=== PATIENT | female | born 1975 | race Caucasian/White ===

== ENCOUNTER 2018-04-22 06:33 | Observation (INO) | payer BC ==
[2018-04-20 16:12] LABS: BASOPHILS % 0.5 % (0.0-1.0); EOSINOPHILS # (AUTO) 0.1 (0.0-0.4); EOSINOPHILS % 1.2 % (0.0-6.0); HEMATOCRIT 45.9 % (34.2-44.1); HEMOGLOBIN 15.4 g/dL (12.0-16.0); LYMPHOCYTES # (AUTO) 2.5 (1.0-3.2); LYMPHOCYTES % 31.7 % (18.0-39.1); MEAN CORPUSCULAR HEMOGLOBIN 30.6 pg (28-32); MEAN CORPUSCULAR HGB CONC 33.6 g/dL (31-35); MEAN CORPUSCULAR VOLUME 91.3 fL (81-99); MONOCYTES # (AUTO) 0.6 (0.2-0.8); MONOCYTES % 6.9 % (4.4-11.3); NEUTROPHILS # (AUTO) 4.8 (2.1-6.9); NEUTROPHILS % 59.3 % (38.7-80.0); PLATELET COUNT 232 x10e3/uL (140-360); RED BLOOD COUNT 5.03 x10e6/uL (3.6-5.1); RED CELL DISTRIBUTION WIDTH 12.3 % (11.7-14.4)
[2018-04-20 16:26] LABS: INR 0.81
[2018-04-20 16:27] LABS: PARTIAL THROMBOPLASTIN TIME 27.8 seconds (23.8-35.5)
[2018-04-20 16:35] LABS: ANION GAP 14.3 mmol/L (8-16); BLOOD UREA NITROGEN 12 mg/dL (7-26); BUN/CREATININE RATIO 13 (6-25); CALCIUM 9.6 mg/dL (8.4-10.2); CARBON DIOXIDE 24 mmol/L (22-29); CHLORIDE 105 mmol/L (98-107); CREATININE, SERUM 0.92 mg/dL (0.57-1.11); EST GLOMERULAR FILTRATION RATE > 60 ML/MIN (60-); GLUCOSE 95 mg/dL (74-118); POTASSIUM 4.3 mmol/L (3.5-5.1); SODIUM 139 mmol/L (136-145)
--- NOTE | 2018-04-20 18:01 | Diagnostic Imaging Report ---
EXAMINATION: CHEST 2 VIEWS COMPARISON: None FINDINGS: TUBES and LINES: None. LUNGS: Lungs are well inflated. Lungs are clear. There is no evidence of pneumonia or pulmonary edema. PLEURA: No pleural effusion or pneumothorax. HEART AND MEDIASTINUM: The cardiomediastinal silhouette is unremarkable. BONES AND SOFT TISSUES: No acute osseous lesion. Soft tissues are unremarkable. UPPER ABDOMEN: No free air under the diaphragm. IMPRESSION: No acute radiographic abnormality. Signed by: Dr. Valente Elena MD on 04/20/2018 5:58 PM
[~2018-04-22] VITALS: Ht 160 cm; Wt 74.4 kg
[~2018-04-22 06:33] MED LIST: CYCLOBENZAPRINE5 MG PO; IBUPROFEN400 MG PO; TOPAMAX25 MG PO
--- OUTSIDE RECORDS SUMMARY | 2018-04-22 06:36 | XMS REPORT ---
Author [facility] Address Unknown Phone Unavailable Care Team Providers Care Traffic Agent Name Role Phone CEDRIC CAGLE Unavailable Unavailable Problems This patient has no known problems. Allergies, Adverse Reactions, Alerts This patient has no known allergies or adverse reactions. Medications This patient has no known medications. Results Test Description Test Time Test Comments Text Results Atomic Results Result Comments CHEST 2 VIEWS 2018-04-20 17:56:00 [place] [address] Patient Name: NICO PARISI MR #: [id number] : 1975 Age/Sex: 43/F Req #: [id number] [facility] Physician: Ordered by: CEDRIC CAGLE MD Report #: [id number] Location: OR Room/Bed: Procedure: [id number] DX/CHEST 2 VIEWS Exam Date: 04/20/18 Exam Time: 1615 REPORT STATUS: Signed EXAMINATION: CHEST 2 VIEWS COMPARISON: None FINDINGS: TUBES and LINES: None. LUNGS: Lungs are well inflated. Lungs are clear. There is no evidence of pneumonia or pulmonary edema. PLEURA: No pleural effusion or pneumothorax. HEART AND MEDIASTINUM: The cardiomediastinal silhouette is unremarkable. BONES AND SOFT TISSUES: No acute osseous lesion. Soft tissues are unremarkable. UPPER ABDOMEN: No free air under the diaphragm. IMPRESSION: No acute radiographic abnormality. Signed by: Dr. Destiny Conti MD on 04/20/2018 5:58 PM Dictated By: DESTINY CONTI MD 55 Transcribed By: HEIDI on 04/20/181757 COPY TO: CEDRIC CAGLE MD
[2018-04-22] MEDS ORDERED: GELATIN SPONGE 12-7MM ONE (06:39)
[2018-04-22] MEDS ORDERED: THROMBIN FOR SOLN 5,000 UNIT VIAL ONE (06:39)
[2018-04-22] MEDS ORDERED: BUPIVACAINE 0.5%/EPI 30 ML SDV INJ ONE (06:39)
[2018-04-22] MEDS ORDERED: BACITRACIN 50,000 UNIT VIAL ONE (06:39)
[2018-04-22] MEDS ORDERED: CEFAZOLIN SOD 1 GM/NS 50ML 50 ML IV ONE (06:44)
[2018-04-22] MEDS ORDERED: LIDOCAINE HCL (LTA) 4 ML SOLN ONE (07:31)
[2018-04-22] MEDS ORDERED: ACETAMINOPHEN 1000 MG/100 ML 100 ML IV ONE (07:31)
--- NOTE | 2018-04-22 07:41 | NUR ---
SPIRITUAL CARE - Pre-Surgery Assessment: Pt in bed. Pt's and mother at bedside. Pt reported supportive attention from family and friends. Intervention: I provided pastoral presence, hospitality, and sympathetic listening. I acquainted pt with availability of chef under while hospitalized. Outcome: Pt expressed appreciation for visit. No need for follow up indicated at this time. CECILIA Gomezlain Spiritual Care Department O: [phone] Pager: [phone] ([phone] number calling from)
[2018-04-22] MEDS ORDERED: ONDANSETRON HCL INJ 2MG/ML 2ML 2 MG/ML VIAL IV PRN (10:15)
[2018-04-22] MEDS ORDERED: CARISOPRODOL 350 MG TAB PO PRN (10:15)
[2018-04-22] MEDS ORDERED: OXYCODONE/ACETAMINOPHEN 5-325 1 EACH TABLET PO PRN (10:15)
[2018-04-22] MEDS ORDERED: ACETAMINOPHEN 325 MG TAB PO PRN (10:15)
[2018-04-22] MEDS ORDERED: CEPACOL SORE THROAT LOZENGES PO PRN (10:15)
[2018-04-22] MEDS ORDERED: MORPHINE SULFATE 5 MG/ML VIAL IM PRN (10:15)
[2018-04-22] MEDS ORDERED: ZOLPIDEM TARTRATE 5 MG TAB PO PRN (10:15)
[2018-04-22] MEDS ORDERED: MAGNESIUM/ALUMINUM/SIMETHICONE 30 ML UDC PO PRN (10:15)
[2018-04-22] MEDS ORDERED: FENTANYL CITRATE/PF 100MCG/2 ML INJ ONE ×2 (10:17→19:30)
[2018-04-22] MEDS ORDERED: KETOROLAC TROMETHAMINE 30 MG/ML VIAL ONE (10:18)
--- NOTE | 2018-04-22 11:02 | Operative Report ---
DATE OF PROCEDURE: April 22, 2018 PREOPERATIVE DIAGNOSIS: C6-C7 disk herniation and spondylosis with radiculopathy, M50.123. POSTOPERATIVE DIAGNOSIS: C6-C7 disk herniation and spondylosis with radiculopathy, M50.123. PROCEDURES 1. C6-C7 anterior cervical diskectomy and microsurgical osteophyte resection and allograft fusion, 28097. 2. Preparation of MTF cortical cancellous allograft, 04813. 3. C6-C7 anterior cervical plating with Synthes ZPN plate, 98432. ANESTHESIA: General. INDICATIONS: The patient is a woman who presents with a C6-C7 disk herniation and spondylosis with right C7 radiculopathy. This is superimposed on a right rotator cuff syndrome. The patient was taken to the operating room for anterior cervical decompression and fusion of the C6-C7 segment. PROCEDURE: After the induction of general anesthesia, the patient was placed on the operating table in the supine position. The right side of the neck was prepped and draped in a sterile fashion. The fluoroscopic C-arm was positioned cross table in lateral orientation. A small transverse incision was created over C6-C7 disk space as determined by fluoroscopy. The platysma was divided in line with the incision. The subplatysmal dissection was carried out in an avascular plane of dissection involving the sternocleidomastoid muscle, and was followed medial to the carotid sheath to the anterior border of the cervical spine. The deep cervical fascia was opened. A subplatysmal was retracted to the left. The attachments of the longus coli muscles and the anterolateral aspect of the vertebral bodies of C6 and C7 were divided. The anterior longitudinal ligament was resected. Cruger posts were inserted in the C6 and C7. Cruger distractor was used to distract the disk space. The anterior annulus of the disk was incised with a #11 blade. The contents of the C6-C7 disk were thoroughly evacuated with angled curettes and pituitary rongeurs. The posterior osteophytes were meticulously drilled with a 2 mm cutting lilliam and high-speed drill until they were completely removed. The posterior annulus of the disk, herniated disk material and the posterior longitudinal ligament were resected layer by layer until the dura was free exposing and decompressing the medial aspects of the uncinate processes were resected bilaterally with particular attention given the right side to ensure decompression of the C7 nerve roots. After satisfactory decompression had been achieved, the end-plates were prepared for fusion. The disk space was sized and found to be 8 mm in height. A piece of MTF cortical cancellous allograft measuring 8 mm in thickness was selected and prepared in setting, and loaded onto a corresponding Synthes ZPN plate. The construct was inserted into the C6-C7 disk space under distraction under fluoroscopic guidance, and tapped in place until its anterior margin was flush with the anterior margin of the vertebral bodies. The plate was then screwed to the end-plates of C6 and C7 with 2 pairs of 14-mm screws. All screws were locked. An excellent construct was obtained. The wound was copiously irrigated with Bacitracin solution. Hemostasis was secured. The retractor was removed. The platysma was closed with 3-0 Vicryl suture. The skin was closed with 4-0 Monocryl sutures in a subcuticular fashion. Steri-Strips and dressing were applied. The patient was awakened, extubated and taken to the postanesthesia recovery unit in stable condition. No intraoperative complications were encountered. Estimated blood loss was 10 mL. Job#: [id number] NAVA
[2018-04-22] MEDS: HYDROMORPHONE 2MG/ML 2 MG/ML ML IV PRN ×2 (11:38→16:54)
--- NOTE | 2018-04-22 11:39 | NUR ---
PATIENT RECEIVED FROM RECOVERY PER STRETCHER AT 1053; SHE'S ALERT, ORIENTED X4, NO RESPIRATORY DISTRESS OBSERVED. DRESSING DRY AND INTACT TO THE ANTERIOR NECK, PATIENT C/O PAIN TO THE NECK AND RIGHT SHOULDER. MEDICATED WITH DILAUDID ORDERED, PATIENT INSTRUCTED TO CALL FOR ASSISTANCE UPON GETTING OUT OF THE BED DUE TO SIDE EFFECT FROM THE PAIN MEDICATION.
[2018-04-22 11:52] VITALS: BP 138/89
[2018-04-22 12:01] VITALS: BP 138/89
[2018-04-22] MEDS: LACTATED RINGER'S 1,000 ML IV SCH ×2 (13:05→18:32)
--- NOTE | 2018-04-22 13:05 | NUR ---
PATIENT C/O NAUSEA, MEDICATED WITH ZOFRAN ORDERED. CALL LIGHT IN EASY REACH, FAMILY MEMBERS WITH THE PATIENT.
[2018-04-22] MEDS: CEFAZOLIN SOD 1 GM/NS 50ML 50 ML IV SCH ×2 (14:10→21:49)
[2018-04-22 15:53] VITALS: BP 165/72
[2018-04-22] MEDS: PROMETHAZINE HCL (IM) 25 MG/ML VIAL IM PRN (16:54)
--- NOTE | 2018-04-22 16:55 | NUR ---
PATIENT C/O NAUSEA AND PAIN TO THE NECK AND THE RIGHT SHOULDER, MEDICATED WITH PHENERGAN AND DILAUDID ORDERED. PATIENT WAS ASSISTED TO THE RESTROOM PRIOR TO ADMINISTERING THE MEDICATIONS. CALL LIGHT WITHIN EASY REACH, FAMILY MEMBERS AT THE BEDSIDE.
[2018-04-22] MEDS ORDERED: NEOSTIGMINE 5 MG/5ML SYR ONE (18:33)
[2018-04-22] MEDS ORDERED: GLYCOPYRROLATE INJ 1MG/ 5 ML SYR ONE (18:33)
[2018-04-22] MEDS ORDERED: LIDOCAINE HCL 2% LOCAL INJ 5 ML SDV VIAL INJ ONE (18:33)
[2018-04-22] MEDS ORDERED: DEXAMETHASONE SOD PHOS INJ 4 MG/ML VIAL ONE (18:33)
[2018-04-22] MEDS ORDERED: ROCURONIUM BROMIDE 10 MG/ML 5ML VIAL ONE (18:33)
[2018-04-22] MEDS ORDERED: SUCCINYLCHOLINE 200 MG/10 ML SYR ONE (18:33)
[2018-04-22] MEDS ORDERED: ISOFLURANE INHAL SOLN 250 ML BTL INH ONE (18:33)
[2018-04-22] MEDS ORDERED: ONDANSETRON HCL INJ 2MG/ML 2ML 2 MG/ML VIAL ONE (18:33)
[2018-04-22] MEDS ORDERED: PROPOFOL IV EMULSION 10 MG/ML 20 ML VIAL ONE (18:33)
--- NOTE | 2018-04-22 19:07 | NUR ---
CHANGE OF SHIFT WALKING ROUNDS MADE, PATIENT REMOVED HER IV BY ACCIDENT. TIP REMAINS INTACT, PRESSURE DRESSING APPLIED TO THE SITE.
--- NOTE | 2018-04-22 19:15 | NUR ---
PT ALERT AND ORIENTED AMBULATING TO ROOM, FAMILY AT SIDE, NO NEEDS VOICED
[2018-04-22] MEDS ORDERED: MIDAZOLAM HCL 2 MG/2 ML VIAL ONE (19:30)
[2018-04-22 20:00] VITALS: BP 154/85
[2018-04-22 20:07] VITALS: BP 154/85
[2018-04-23] VITALS: BP 113/87
--- NOTE | 2018-04-23 00:46 | NUR ---
PRN GIVEN FOR PAIN
[2018-04-23] MEDS: LACTATED RINGER'S 1,000 ML IV SCH (02:52)
[2018-04-23 04:00] VITALS: BP 137/64
--- NOTE | 2018-04-23 04:49 | NUR ---
PT AMBULATING HALLWAY, NO DISTRESS NOTED, NO NEEDS VOICED
[2018-04-23] MEDS: CEFAZOLIN SOD 1 GM/NS 50ML 50 ML IV SCH (05:16)
--- NOTE | 2018-04-23 05:17 | NUR ---
PT ALERT AND ORIENTED, PT AMBULATING TO ROOM, DENIES NEEDS, NO DISTRESS NOTED
--- NOTE | 2018-04-23 06:36 | Diagnostic Imaging Report ---
C-SPINE 2 VIEWS AP LATERAL Comparison: None Clinical history: Status post surgery Findings: Visualization through C6 on lateral view. Postsurgical changes status post C6-7 anterior cervical discectomy and fusion. Alignment is grossly intact. Impression: Postsurgical changes status post C6-7 ACDF. Signed by: Dr Valentina Santa MD on 04/23/2018 6:33 AM
[2018-04-23] MEDS: PROMETHAZINE HCL (IM) 25 MG/ML VIAL IM PRN (08:19)
[2018-04-23] MEDS: HYDROMORPHONE 2MG/ML 2 MG/ML ML IV PRN (08:19)
[2018-04-23] MEDS ORDERED: NICOTINE 14 MG/EA PATCH TOP SCH (09:00)
[2018-04-23 09:16] VITALS: BP 128/75
[2018-04-23 09:32] VITALS: BP 128/75
--- NOTE | 2018-04-23 11:08 | NUR ---
CASE MANAGEMENT INITIAL ASSESSMENT Computer Tester to bedside to discuss plan of care with patient/family. CM/SW role and care transitions discussed. Anticipated discharge plan discussed along with duration of care. CM/SW discussed patients right to make decisions in care. CM/SW work hours given. Patient lives: AND CHILDREN Admit/Transfer: FROM OR POA/Emergency contact: ALICIA PHAN [phone] Current/Previous Home Health: NONE PCP/Follow-up Care: F/U WITH DR CAGLE Current/Previous DME: NONE Other Services: N/A Employment Status: [employer]KS [employer] Areas of Concerns: NONE Referral Needs: NONE Education Needs: F/U VISITS AND POST OP CARE IMM/MARINO given and signed (if applicable): N/A Goal for discharge:DISCHARGE HOME TODAY CM/SW left business card at the bedside with contact information. Name and number was also written on the patients whiteboard. Patient verbalized understanding of discussion. CM will follow-up with ongoing discharge and transition of care needs.
[2018-04-23] MEDS ORDERED: NORCO 7.5-3251 EACH PO (11:45)
--- NOTE | 2018-04-23 12:00 | NUR ---
Call and spoke with Dr. Oakes and stated will send prescription to patient's pharmacy to be filled.
--- NOTE | 2018-04-23 12:20 | NUR ---
Patient provided with prescription and discharge summary, and contacts for follow up appointment. IV line removed with cath tip in place and dressing applied. Patient is discharged. Education provided on side effects of medication and to monitor
== END 2018-04-23 12:26 | disposition home or self-care (01) ==
LOC: OR 06:33 → PACU V 10:46 → MED/SURG 10:53
PROVIDERS: ADMIT Neurological Surgery; ATTEND Neurological Surgery
DX: M50.123 Cervical disc disorder at C6-C7 level with radiculopathy (principal); M47.22 Other spondylosis with radiculopathy, cervical region; F17.210 Nicotine dependence, cigarettes, uncomplicated; Z01.812 Encounter for preprocedural laboratory examination
CPT/HCPCS: 20931; 22551; 36415; 71046; 72040; 77003; 80048; 81025; 85025; 85610; 85730; 86850; 86900; 88304; 93005; 96365; 96367; 96372; 96376; C1713 ×2; C9359; G0378 ×2; J0131; J0690; J1100; J1170 ×2; J1885; J2001; J2250; J2405; J2550 ×2; J2704; J3490; J7120